=== PATIENT | male | born 1985 | race African-American/Black ===

== ENCOUNTER 2020-06-28 12:29 | Outpatient (CLI) | payer BC, OTHER | END 2020-06-28 19:26 | disposition home or self-care (01) | LOC: LAB 12:29 | PROVIDERS: ATTEND Family Medicine | DX: Z20.828 Contact with and (suspected) exposure to other viral communicable diseases (principal) | CPT/HCPCS: 87635; G2023; U0003 ==

== ENCOUNTER 2022-03-18 11:22 | Outpatient (CLI) | payer OTHER | END 2022-03-18 18:50 | disposition home or self-care (01) | LOC: RAD 11:22 | PROVIDERS: ATTEND Family Medicine | DX: M54.2 Cervicalgia (principal); M25.512 Pain in left shoulder ==

== ENCOUNTER 2022-05-21 15:43 | Outpatient (CLI) | payer OTHER | END 2022-05-21 19:16 | disposition home or self-care (01) | LOC: RAD 15:43 | PROVIDERS: ATTEND Obstetrics & Gynecology Gynecology | DX: M25.512 Pain in left shoulder (principal) ==